=== PATIENT | female | born 1950 | race Caucasian/White ===

== ENCOUNTER 2024-04-27 07:48 | Day surgery (SDC) | payer BC ==
[~2024-04-27] VITALS: Ht 157.5 cm; Wt 131.0 kg
[~2024-04-27 07:48] MED LIST: ASPI-612 PO; ATOR40TA72 PO; CETI-194 PO; EMPA10TA PO; FURO40TA4 PO; METF-1203 PO; OMEP20CA16 PO; SACU1TAB7 PO
[2024-04-27 08:16] VITALS: BP 142/67; PULSE 84; RESP 19; TEMP 97.5
[2024-04-27] MEDS ORDERED: fentaNYL/PF 50MCG/1 ML 2ML syringe ONE (09:15)
[2024-04-27] MEDS ORDERED: midazolam 1 mg/ML 2ml injection ONE (09:16)
[2024-04-27 09:44] VITALS: BP 92/49; PULSE 71; RESP 23; O2SAT 100
[2024-04-27] MEDS ORDERED: propofol inj 20 ML IV ONE (09:49)
[2024-04-27 09:54] VITALS: BP 90/45; PULSE 68; RESP 20; O2SAT 98
[2024-04-27 10:04] VITALS: BP 98/55; PULSE 68; RESP 19; O2SAT 100
[2024-04-27 10:14] VITALS: BP 108/56; PULSE 74; RESP 18; O2SAT 97
== END 2024-04-27 10:22 | disposition home or self-care (01) ==
LOC: GI LAB 07:48
PROVIDERS: ATTEND Internal Medicine Gastroenterology
DX: Z12.11 Encounter for screening for malignant neoplasm of colon (principal); K57.30 Diverticulosis of large intestine without perforation or abscess without bleeding; K63.5 Polyp of colon; I10 Essential (primary) hypertension; E11.9 Type 2 diabetes mellitus without complications; E66.9 Obesity, unspecified; E78.5 Hyperlipidemia, unspecified; K21.9 Gastro-esophageal reflux disease without esophagitis; G47.33 Obstructive sleep apnea (adult) (pediatric); Z86.0100 Personal history of colon polyps, unspecified; Z86.73 Personal history of transient ischemic attack (TIA), and cerebral infarction without residual deficits; Z79.82 Long term (current) use of aspirin; Z79.84 Long term (current) use of oral hypoglycemic drugs; Z79.899 Other long term (current) drug therapy; Z90.710 Acquired absence of both cervix and uterus; Z98.890 Other specified postprocedural states
CPT/HCPCS: 45385; J2250; J2704; J3010; J7030; Z7512; 45380; A4620; C1889